=== PATIENT | female | born 1975 | race Hispanic/Latino ===

== ENCOUNTER 2022-03-15 10:19 | Observation (INO) | payer MEDICARE ==
[~2022-03-15] VITALS: Ht 154.9 cm; Wt 28.1 kg
[~2022-03-15 10:19] MED LIST: DIAZEPAM5 MG PO
[2022-03-15] MEDS ORDERED: SODIUM CHLORIDE 0.9% 1000ML 1,000 ML IV ONE (10:45)
[2022-03-15 11:05] LABS: BASOPHILS % 0.5 % (0.0-1.0); EOSINOPHILS # (AUTO) 0.2 (0.0-0.4); EOSINOPHILS % 5.6 % (0.0-6.0); HEMATOCRIT 36.3 % (34.2-44.1); HEMOGLOBIN 11.7 g/dL (12.0-16.0); LYMPHOCYTES # (AUTO) 0.9 (1.0-3.2); LYMPHOCYTES % 23.9 % (18.0-39.1); MEAN CORPUSCULAR HEMOGLOBIN 30.5 pg (28-32); MEAN CORPUSCULAR HGB CONC 32.2 g/dL (31-35); MEAN CORPUSCULAR VOLUME 94.5 fL (81-99); MONOCYTES # (AUTO) 0.4 (0.2-0.8); MONOCYTES % 10.6 % (4.4-11.3); NEUTROPHILS # (AUTO) 2.2 (2.1-6.9); NEUTROPHILS % 59.1 % (38.7-80.0); PLATELET COUNT 200 x10e3/uL (140-360); RED BLOOD COUNT 3.84 x10e6/uL (3.6-5.1); RED CELL DISTRIBUTION WIDTH 13.2 % (11.7-14.4)
[2022-03-15 11:15] LABS: INR 0.98; PARTIAL THROMBOPLASTIN TIME 34.2 seconds (23.8-35.5); PROTHROMBIN TIME 13.9 seconds (11.9-14.5)
[2022-03-15 11:24] LABS: ALBUMIN 4.1 g/dL (3.5-5.0); ALBUMIN/GLOBULIN RATIO 1.1 (0.8-2.0); ANION GAP 15.1 mmol/L (8-16); CREATININE, SERUM 0.66 mg/dL (0.57-1.11); POTASSIUM 4.1 mmol/L (3.5-5.1)
[2022-03-15] MEDS: SODIUM CHLORIDE 0.9% 1000ML 1,000 ML IV SCH ×2 (12:10→15:00)
[2022-03-15 15:13] VITALS: BP 108/64
[2022-03-15] MEDS ORDERED: MIRALAX17 GM PO (15:59)
[2022-03-15 18:18] VITALS: BP 108/64
[2022-03-15 20:47] VITALS: BP 103/56
[2022-03-15 23:53] VITALS: BP 91/73
[2022-03-16 04:55] LABS: BASOPHILS % 0.4 % (0.0-1.0); EOSINOPHILS # (AUTO) 0.3 (0.0-0.4); EOSINOPHILS % 5.2 % (0.0-6.0); HEMATOCRIT 33.6 % (34.2-44.1); HEMOGLOBIN 10.5 g/dL (12.0-16.0); LYMPHOCYTES # (AUTO) 1.2 (1.0-3.2); LYMPHOCYTES % 23.2 % (18.0-39.1); MEAN CORPUSCULAR HEMOGLOBIN 29.9 pg (28-32); MEAN CORPUSCULAR HGB CONC 31.3 g/dL (31-35); MEAN CORPUSCULAR VOLUME 95.7 fL (81-99); MONOCYTES # (AUTO) 0.6 (0.2-0.8); MONOCYTES % 11.9 % (4.4-11.3); NEUTROPHILS % 59.1 % (38.7-80.0); PLATELET COUNT 166 x10e3/uL (140-360); RED BLOOD COUNT 3.51 x10e6/uL (3.6-5.1)
[2022-03-16 05:23] LABS: CALCIUM 8.4 mg/dL (8.4-10.2); CREATININE, SERUM 0.63 mg/dL (0.57-1.11)
[2022-03-16 05:59] VITALS: BP 108/64
[2022-03-16 07:57] VITALS: BP 99/67
[2022-03-16 08:06] VITALS: BP 99/67
[2022-03-16 11:39] VITALS: BP 109/65
[2022-03-16] MEDS ORDERED: PROPOFOL IV EMULSION 10 MG/ML 20 ML VIAL ONE (12:34)
[2022-03-16 16:00] VITALS: BP 106/64
== END 2022-03-16 18:52 | disposition home or self-care (01) ==
LOC: ER 10:24 → ERHOLD 11:51 → MED/SURG2 14:38
DX: K94.23 Gastrostomy malfunction (principal); G80.9 Cerebral palsy, unspecified; E86.0 Dehydration; E43 Unspecified severe protein-calorie malnutrition; Z68.1 Body mass index [BMI] 19.9 or less, adult; K29.70 Gastritis, unspecified, without bleeding; Z20.822 Contact with and (suspected) exposure to COVID-19
CPT/HCPCS: 0223U; 36415 ×2; 43246; 80048; 80053; 84702; 85025 ×2; 85610; 85730; 99251; 99284; G0378 ×2; J2704; J7030 ×2

== ENCOUNTER 2022-08-28 07:28 | Emergency (ER) | payer MEDICARE, OTHER ==
[~2022-08-28] VITALS: Ht 154.9 cm; Wt 28.1 kg
[~2022-08-28 07:28] MED LIST changes: +MIRALAX17 GM PO
[2022-08-28 08:30] VITALS: BP 108/76
== END 2022-08-28 08:28 | disposition home or self-care (01) ==
LOC: ER 07:36
DX: Z43.1 Encounter for attention to gastrostomy (principal); G80.9 Cerebral palsy, unspecified
CPT/HCPCS: 99282

== ENCOUNTER 2022-08-29 15:25 | Emergency (ER) | payer MEDICARE, OTHER ==
[~2022-08-29] VITALS: Ht 154.9 cm; Wt 28.1 kg
[2022-08-29] MEDS ORDERED: DIATRIZOATE MEGL/DIATRIZOA SOD 30 ML BTL PO ONE (16:19)
[2022-08-29 17:42] VITALS: BP 139/86
== END 2022-08-29 17:24 | disposition home or self-care (01) ==
LOC: ER 15:33
DX: Z43.1 Encounter for attention to gastrostomy (principal); G80.9 Cerebral palsy, unspecified
CPT/HCPCS: 74018; 99283; Q9963

== ENCOUNTER 2022-11-26 17:25 | Emergency (ER) | payer MEDICARE, OTHER ==
[~2022-11-26] VITALS: Ht 154.9 cm; Wt 28.1 kg
[2022-11-26] MEDS ORDERED: DIATRIZOATE MEGL/DIATRIZOA SOD 30 ML BTL PO ONE (18:52)
[2022-11-26 19:54] VITALS: BP 134/95; PULSE 72; RESP 18; TEMP 97.6; O2SAT 100
== END 2022-11-26 19:56 | disposition home or self-care (01) ==
LOC: ER 17:33
DX: Z43.1 Encounter for attention to gastrostomy (principal); B35.4 Tinea corporis; G80.9 Cerebral palsy, unspecified
CPT/HCPCS: 74018; 99283; Q9963

== ENCOUNTER 2025-03-08 13:00 | Emergency (ER) | payer MEDICARE, OTHER ==
[~2025-03-08] VITALS: Ht 154.9 cm; Wt 28.1 kg
[2025-03-08 14:25] VITALS: TEMP 97.5
[2025-03-08 15:30] VITALS: PULSE 77; RESP 16; O2SAT 100
[2025-03-08] MEDS: KETOROLAC TROMETHAMINE 30 MG/ML VIAL IM STA (15:44)
== END 2025-03-08 15:45 | disposition home or self-care (01) ==
LOC: ER 14:13
DX: R10.32 Left lower quadrant pain (principal); M94.0 Chondrocostal junction syndrome [Tietze]; G80.9 Cerebral palsy, unspecified; F79 Unspecified intellectual disabilities; Z93.1 Gastrostomy status
CPT/HCPCS: 96372; 99282; J1885

== ENCOUNTER → 2025-03-27 | Day surgery (SDC) | payer MEDICARE, OTHER ==
[2025-03-23 15:09] LABS: BASOPHILS % 0.5 % (0.0-1.0); EOSINOPHILS % 5.6 % (0.0-6.0); LYMPHOCYTES % 18.2 % (18.0-39.1); MONOCYTES % 11.5 % (4.4-11.3); NEUTROPHILS % 64.0 % (38.7-80.0); RED CELL DISTRIBUTION WIDTH 12.6 % (11.7-14.4)
[~2025-03-27] MED LIST changes: +LIDOCAINE HCL 2% LOCAL INJ 5 ML SDV VIAL INJ ONE; +MIDAZOLAM HCL 2MG/ML ORAL LIQ CUP ONE; +PROPOFOL IV EMULSION 10 MG/ML 20 ML VIAL ONE; +QUETIAPINE FUMA25 MG PO
[2025-03-27] MEDS: LACTATED RINGER'S 1,000 ML ONE (14:27)
[2025-03-27 16:39] VITALS: TEMP 97.2
[2025-03-27 17:05] VITALS: BP 113/74; PULSE 70; RESP 12; O2SAT 97
== END | disposition home or self-care (01) ==
LOC: OR 14:09
PROVIDERS: ATTEND Internal Medicine Gastroenterology
DX: K94.23 Gastrostomy malfunction (principal); K29.70 Gastritis, unspecified, without bleeding; K20.90 Esophagitis, unspecified without bleeding; G80.9 Cerebral palsy, unspecified; F41.9 Anxiety disorder, unspecified; Y83.3 Surgical operation with formation of external stoma as the cause of abnormal reaction of the patient, or of later complication, without mention of misadventure at the time of the procedure; Z88.0 Allergy status to penicillin; Z01.810 Encounter for preprocedural cardiovascular examination; Z01.812 Encounter for preprocedural laboratory examination; Z79.899 Other long term (current) drug therapy
CPT/HCPCS: 36415; 43246; 85025; 93005; J2003; J2470; J2704; J7121